=== PATIENT | male | born 1995 | race Caucasian/White ===

== ENCOUNTER 2023-05-18 20:24 | Emergency (ER) | payer OTHER | END 2023-05-18 23:24 | disposition left against medical advice (07) | LOC: JD.ED 20:24 | DX: Z53.21 Procedure and treatment not carried out due to patient leaving prior to being seen by health care provider (principal) | CPT/HCPCS: 73610-26-RT; 73610-RT ==

== ENCOUNTER 2023-05-19 00:18 | Emergency (ER) | payer OTHER | END 2023-05-19 02:15 | disposition home or self-care (01) | LOC: JD.ED 00:18 | DX: S93.401A Sprain of unspecified ligament of right ankle, initial encounter (principal); F17.220 Nicotine dependence, chewing tobacco, uncomplicated; W17.89XA Other fall from one level to another, initial encounter; Y93.39 Activity, other involving climbing, rappelling and jumping off; Y92.89 Other specified places as the place of occurrence of the external cause; Y99.0 Civilian activity done for income or pay | CPT/HCPCS: 99282; 99283 ==